=== PATIENT | female | born 1950 | race Caucasian/White ===

== ENCOUNTER → 2017-04-24 | Outpatient (CLI) | payer OTHER | END | disposition home or self-care (01) | LOC: C.PAPS 15:03 | PROVIDERS: ATTEND Obstetrics & Gynecology | DX: Z01.419 Encounter for gynecological examination (general) (routine) without abnormal findings (principal) ==

== ENCOUNTER → 2017-07-17 | Outpatient (CLI) | payer OTHER | END | disposition home or self-care (01) | LOC: C.PAPS 07:38 | PROVIDERS: ATTEND Obstetrics & Gynecology | DX: R87.615 Unsatisfactory cytologic smear of cervix (principal) ==